=== PATIENT | female | born 1945 | race Caucasian/White ===

== ENCOUNTER 2023-04-28 17:46 | Emergency (ER) | payer MEDICARE, SELFPAY ==
[2023-04-28] VITALS (14 sets, daily range): BP systolic 106–145; BP diastolic 68–95; PULSE 62–98; RESP 14–34; TEMP 36.6; O2SAT 95–99; BMI 40.7
--- NOTE | 2023-04-28 17:52 | XR_ITS ---
The [place] [id number] Patient Name: NINFA BECKER MRN: [id number] date: 1945 Sex: F Assigned Patient Location: ER Current Patient Location: ED.MAIN Accession/Order Number: [id number] Exam Date: 04/28/2023 16:55 Report Date: 04/28/2023 19:16 At the request of: MARTINA BAINS Procedure: XR hip LT 2V w/ pelvis EXAM: XR hip LT 2V w/ pelvis HISTORY: Fall out of front door COMPARISON: None. TECHNIQUE: AP pelvis and 2 views of the left hip FINDINGS: No fracture, dislocation, subluxation or osseous lesion. The hip joints, pubic symphysis and sacroiliac joints are normal for patient's age. Enthesophytes off the tendinous insertions. Scattered atherosclerosis of the vascular structures. IMPRESSION: No acute osseous abnormality. Electronically authenticated by: ABEL LEONARD Date: 04/28/2023 19:16
--- NOTE | 2023-04-28 17:52 | CT_ITS ---
[address] [address] Patient Name: NINFA BECKER MRN: [id number] date: 1945 Sex: F Assigned Patient Location: ER Current Patient Location: ER Accession/Order Number: [id number] Exam Date: 04/28/2023 18:45 Report Date: 04/28/2023 19:45 At the request of: MARTINA BAINS Procedure: CT head/brain wo con EXAMINATION: CT head/brain wo con TECHNIQUE: Axial CT images were obtained through the brain. Sagittal and coronal reformatted images were also obtained. Dose reduction techniques were achieved by using automated exposure control and/or adjustment of mA and/or kV according to patient size and/or use of iterative reconstruction technique. HISTORY: head injury COMPARISON: None. FINDINGS: Intracranial Bleed: No evidence for acute intracranial bleed. Intracranial Mass: No evidence for mass lesion. No mass effect or midline shift. Extra-axial spaces: There is mild cerebral atrophy and proportional ventricular enlargement. White/Mariscal Matter: No acute cortical infarct. Tiny old lacunar infarcts of the basal ganglia bilaterally. Skull/Scalp: No evidence for skull fracture or lesion. Large scalp hematoma over the right frontal convexity Orbits and sinuses: The orbits appear unremarkable. The visualized paranasal sinuses are clear. IMPRESSION: No acute intracranial pathology. Electronically authenticated by: SALVATORE ROMERO Date: 04/28/2023 19:45
--- NOTE | 2023-04-28 17:54 | CT_ITS ---
The [address] [address] Patient Name: NINFA BECKER MRN: [id number] date: 1945 Sex: F Assigned Patient Location: ER Current Patient Location: ED.MAIN Accession/Order Number: [id number] Exam Date: 04/28/2023 18:45 Report Date: 04/28/2023 19:11 At the request of: MARTINA BAINS Procedure: CT cervical spine wo con EXAM: CT cervical spine wo con HISTORY: fall COMPARISON: None. TECHNIQUE: Axial CT imaging is performed through the cervical spine. Sagittal and coronal reformatted/reconstructed sequences were additionally performed. FINDINGS: Multilevel intervertebral disc space narrowing, endplate, uncovertebral and facet arthrosis. Straightening of the normal cervical lordosis with mild reversal centered at C4. No visualized fracture or listhesis. The dens and lateral masses of C1 are symmetric. No prevertebral soft tissue edema. The visualized osseous skull base and mastoid air cells are unremarkable. Atherosclerosis of the vascular structures. No gross irregularity of the visualized pulmonary apices, thoracic inlet or visualized airway IMPRESSION: No visualized acute abnormality. Electronically authenticated by: ABEL LEONARD Date: 04/28/2023 19:11
--- NOTE | 2023-04-28 17:56 | ED.FALL1 ---
Documented by User: Katelynn Nieves MD 04/28/23 19:46 HPI - Fall General Chief Complaint: Fall Stated Complaint: FALL Time Seen by Provider: 04/28/23 17:55 Source: patient Mode of arrival: ambulance Limitations: no limitations History of Present Illness HPI Narrative: Patient fell from standing position and she was tripped by her dog and landed on her head did not have loss of consciousness. She sustained a hematoma to the frontal area and was not able to get up due to pain to her left hip, knee, and ankle. She arrived via EMS. Patient denies any weakness. She has not been sick with anything recently. She denies any visual disturbance or speech difficulties. She complains of neck pain denies any chest pain, or shortness of breath. She denies any flank pain or abdominal pain nausea, vomiting, or diarrhea. She denies any hematuria or dysuria. She states she feels like she has to urinate. Related Data Allergies Allergy/AdvReac Type Severity Reaction Status Date / Time Penicillins Allergy Severe Verified 04/28/23 17:45 Review of Systems ROS Status of ROS 10 or more systems reviewed and unremarkable except as noted in history and below [facility] Social History Smoking status: Never smoker Exam Narrative Exam Narrative: Nurses notes and vital signs reviewed and patient is not hypoxic. General: Elderly, frail, chronically ill, nontoxic, and in no apparent distress. Skin: Warm, dry, no pallor noted. No rash. Head: Normocephalic, Large right frontal hematoma, no step-offs. Neck: Supple, non-tender.c collar in place. Eye: Pupils are equal, round and EOMI. No scleral icterus.No periorbital tenderness or step-offs. Ears, Nose, Mouth, and Throat: TM are clear, No hemotympanum,no posterior oropharynx erythema or nasal mucosal hypertrophy, uvula is mid-line Oral mucosa is moist Cardiovascular: Regular Rate and Rhythm without murmur, gallop or rub. Respiratory: No accessory muscle use or respiratory distress. Lungs are clear to auscultation, no wheezing, rales or rhonchi Chest Wall: no tenderness Back: No midline thoracic or lumbar vertebral tenderness. No CVA tenderness Musculoskeletal: Advised to palpation to the left lateral hip, knee left lateral knee, and bilateral ankle malleoli. DP +2, capillary refill is brisk.range of Motion is limited by pain. no calf or popliteal tenderness, no lower extremity edema/swelling GI: Abdomen is soft, non-distended. Normal bowel sounds. No masses appreciated. No tenderness to palpation. No rebound, guarding, or rigidity noted. Neurological: A&O x4. No cranial nerve dysfunction observed. Moves all extremities. Sensation intact. Psychiatric: Cooperative and interactive. Normal mood and affect. Constitutional Vital Signs - 24 hr 04/28/23 17:46 04/28/23 17:47 04/28/23 17:50 Temperature 97.8 F Pulse Rate 65 63 Pulse Rate [Monitor] 67 Respiratory Rate 24 17 32 H Blood Pressure Blood Pressure [Right Arm] 106/68 Pulse Oximetry 98 99 98 Oxygen Delivery Method Room Air 04/28/23 18:00 04/28/23 18:01 04/28/23 18:01 Temperature Pulse Rate 66 64 Pulse Rate [Monitor] Respiratory Rate 14 21 Blood Pressure 139/95 H 139/95 H Blood Pressure [Right Arm] Pulse Oximetry 96 95 Oxygen Delivery Method 04/28/23 19:09 04/28/23 19:10 04/28/23 19:20 Temperature Pulse Rate 62 63 68 Pulse Rate [Monitor] Respiratory Rate 14 19 18 Blood Pressure Blood Pressure [Right Arm] Pulse Oximetry 99 97 96 Oxygen Delivery Method 04/28/23 19:30 04/28/23 19:40 04/28/23 19:50 Temperature Pulse Rate 98 H 80 80 Pulse Rate [Monitor] Respiratory Rate 17 18 34 H Blood Pressure Blood Pressure [Right Arm] Pulse Oximetry 98 97 95 Oxygen Delivery Method 04/28/23 20:00 04/28/23 20:01 Temperature Pulse Rate 90 78 Pulse Rate [Monitor] Respiratory Rate 20 16 Blood Pressure 145/73 H Blood Pressure [Right Arm] Pulse Oximetry 98 98 Oxygen Delivery Method Course Course Hospital Course: Patient was seen and evaluated by me. CT scans and radiologic studies were ordered. The patient will be signed out to Dr. Berrios at the end of my shift awaiting radiologic studies, reevaluation, and disposition. Vital Signs Vital signs: Vital Signs Temperature 97.8 F 04/28/23 17:46 Pulse Rate 67 04/28/23 17:46 Respiratory Rate 24 04/28/23 17:46 Blood Pressure 106/68 04/28/23 17:46 Pulse Oximetry 98 04/28/23 17:46 Oxygen Delivery Method Room Air 04/28/23 17:46 Temperature 97.8 F 04/28/23 17:46 Pulse Rate 78 04/28/23 20:01 Respiratory Rate 16 04/28/23 20:01 Blood Pressure 145/73 H 04/28/23 20:01 Pulse Oximetry 98 04/28/23 20:01 Oxygen Delivery Method Room Air 04/28/23 17:46 MDM - Fall Differential Diagnosis Differential diagnosis: Likely other (Left hip fracture, left knee fracture, left ankle fracture, closed head injury) Lab Data Labs: Lab Results 04/28/23 Range/Units 18:28 Urine Color Lt. yellow (YELLOW) Urine Clarity Clear (CLEAR) Urine pH 5.5 (5.0-9.0) Ur Specific [place] 1.010 (1.005-1.025) Urine Protein Negative (NEG/TRACE) mg/dL Urine Glucose (UA) 100 A (NEGATIVE) mg/dL Urine Ketones Negative (NEGATIVE) mg/dL Urine Occult Blood Negative (NEGATIVE) Urine Nitrite Negative (NEGATIVE) Urine Bilirubin Negative (NEGATIVE) Urine Urobilinogen 0.2 (0.2-1.0) EU/dL Ur Leukocyte Esterase Negative (NEGATIVE) Discharge Plan Discharge Chief Complaint: Fall Clinical Impression: Head injury due to trauma, Cervical strain, acute, Fracture of ankle, left, closed Condition: Good Instructions: Cervical Strain (ED), Ankle Fracture (ED), Head Injury (ED), Contusion in Adults (ED) Referrals: Suma Gomez [Primary Care Provider] - 1 week Documented by User: Pieter Berrios MD 04/28/23 21:19 HPI - Fall General Chief Complaint: Fall Stated Complaint: FALL Time Seen by Provider: 04/28/23 17:55 Related Data Allergies Allergy/AdvReac Type Severity Reaction Status Date / Time Penicillins Allergy Severe Verified 04/28/23 17:45 PFSH PFSH Social History Smoking status: Never smoker Exam Constitutional Vital Signs - 24 hr 04/28/23 17:46 04/28/23 17:47 04/28/23 17:50 Temperature 97.8 F Pulse Rate 65 63 Pulse Rate [Monitor] 67 Respiratory Rate 24 17 32 H Blood Pressure Blood Pressure [Right Arm] 106/68 Pulse Oximetry 98 99 98 Oxygen Delivery Method Room Air 04/28/23 18:00 04/28/23 18:01 04/28/23 18:01 Temperature Pulse Rate 66 64 Pulse Rate [Monitor] Respiratory Rate 14 21 Blood Pressure 139/95 H 139/95 H Blood Pressure [Right Arm] Pulse Oximetry 96 95 Oxygen Delivery Method 04/28/23 19:09 04/28/23 19:10 04/28/23 19:20 Temperature Pulse Rate 62 63 68 Pulse Rate [Monitor] Respiratory Rate 14 19 18 Blood Pressure Blood Pressure [Right Arm] Pulse Oximetry 99 97 96 Oxygen Delivery Method 04/28/23 19:30 04/28/23 19:40 04/28/23 19:50 Temperature Pulse Rate 98 H 80 80 Pulse Rate [Monitor] Respiratory Rate 17 18 34 H Blood Pressure Blood Pressure [Right Arm] Pulse Oximetry 98 97 95 Oxygen Delivery Method 04/28/23 20:00 04/28/23 20:01 Temperature Pulse Rate 90 78 Pulse Rate [Monitor] Respiratory Rate 20 16 Blood Pressure 145/73 H Blood Pressure [Right Arm] Pulse Oximetry 98 98 Oxygen Delivery Method Course Course Hospital Course: Patient was seen and evaluated by me. CT scans and radiologic studies were ordered. The patient will be signed out to Dr. Berrios at the end of my shift awaiting radiologic studies, reevaluation, and disposition. Vital Signs Vital signs: Vital Signs Temperature 97.8 F 04/28/23 17:46 Pulse Rate 67 04/28/23 17:46 Respiratory Rate 24 04/28/23 17:46 Blood Pressure 106/68 04/28/23 17:46 Pulse Oximetry 98 04/28/23 17:46 Oxygen Delivery Method Room Air 04/28/23 17:46 Temperature 97.8 F 04/28/23 17:46 Pulse Rate 78 04/28/23 20:01 Respiratory Rate 16 04/28/23 20:01 Blood Pressure 145/73 H 04/28/23 20:01 Pulse Oximetry 98 04/28/23 20:01 Oxygen Delivery Method Room Air 04/28/23 17:46 MDM - Fall MDM Narrative Medical decision making narrative: care transferred at change of shift. Patient fell down stairs of her front porch. was tripped by her dog. Struck her forehead but no LOC. CT and xrays pending . CT brain and C-spine without acute findings. xray left knee neg for acute findings. Xray of the left ankle demonstrated fracture of the medial malleolus, tibia plafond and questionable fracture of the distal fibula. patient and family informed of the results. Patient's left ankle splinted with extra padding. She is discharged home to follow up with orthopedics. Her family is here to support her at home. Medical Records Medical records narrative: procedure: placement of left ankle splint. Re: left ankle fracture. Size 5 fiber glass material used to form posterior ankle splint. extra padding used for the procedure. Patient tolerated the procedure well. N/V post procedure WNL Lab Data Labs: Lab Results 04/28/23 Range/Units 18:28 Urine Color Lt. yellow (YELLOW) Urine Clarity Clear (CLEAR) Urine pH 5.5 (5.0-9.0) Ur Specific [place] 1.010 (1.005-1.025) Urine Protein Negative (NEG/TRACE) mg/dL Urine Glucose (UA) 100 A (NEGATIVE) mg/dL Urine Ketones Negative (NEGATIVE) mg/dL Urine Occult Blood Negative (NEGATIVE) Urine Nitrite Negative (NEGATIVE) Urine Bilirubin Negative (NEGATIVE) Urine Urobilinogen 0.2 (0.2-1.0) EU/dL Ur Leukocyte Esterase Negative (NEGATIVE) Discharge Plan Discharge Chief Complaint: Fall Clinical Impression: Head injury due to trauma, Cervical strain, acute, Fracture of ankle, left, closed Condition: Good Instructions: Cervical Strain (ED), Ankle Fracture (ED), Head Injury (ED), Contusion in Adults (ED) Referrals: Suma Gomez [Primary Care Provider] - 1 week
--- NOTE | 2023-04-28 18:47 | XR_ITS ---
The [address] [address] Patient Name: NINFA BECKER MRN: [id number] date: 1945 Sex: F Assigned Patient Location: ER Current Patient Location: ER Accession/Order Number: [id number] Exam Date: 04/28/2023 16:55 Report Date: 04/28/2023 19:22 At the request of: MARTINA BAINS Procedure: XR ankle LT min 3V EXAM: XR ankle LT min 3V HISTORY: Pain following fall COMPARISON: None. TECHNIQUE: 3 views FINDINGS: IMPRESSION: Comminuted displaced intra-articular fracture of the medial malleolus and posteromedial tibial plafond. Questionable nondisplaced horizontal fracture of the distal fibula. Large talocrural joint effusion. Diffuse subcutaneous soft tissue edema. Degenerative joint space narrowing and osteophytes of all visualized joints. 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 Atherosclerosis of the vascular structures. Electronically authenticated by: ABEL LEONARD Date: 04/28/2023 19:22
--- NOTE | 2023-04-28 18:56 | XR_ITS ---
The [address] [address] Patient Name: NINFA BECKER MRN: [id number] date: 1945 Sex: F Assigned Patient Location: ER Current Patient Location: ER Accession/Order Number: [id number] Exam Date: 04/28/2023 16:55 Report Date: 04/28/2023 19:19 At the request of: MARTINA BAINS Procedure: XR knee LT 3V EXAM: XR knee LT 3V HISTORY: Left knee pain after fall COMPARISON: None. TECHNIQUE: 3 views FINDINGS: IMPRESSION: Tricompartmental joint space narrowing and osteophytes. No visualized fracture, dislocation, subluxation or osseous lesion. No discrete knee effusion. Atherosclerosis of the vascular structures. Electronically authenticated by: ABEL LEONARD Date: 04/28/2023 19:19
--- NOTE | 2023-04-28 19:47 | ECG_ITS ---
The [facility] Test Date: 2023-04-28 Pat Name: Deena Cox Department: Room: - Gender: Female Residential Aide: : 1945 Requested By: FRANKLIN HAMPTON Order Number: [id number] Reading MD: MAHESH VALVERDE Measurements Intervals [place] Rate: 61 P: -[id number] [place]: -[id number] QRS: -8 QRSD: 70 T: 0 QT: 404 QTc: 408 Interpretive Statements MOBITZ I AV BLOCK ([place]) 3633 Inferior myocardial infarction, probably old 5233 Voltage criteria for LVH 8102 Low QRS voltage in chest leads 9150 abnormal ECG No previous ECG available for comparison Electronically Signed On 04-29-2023 6:41:00 EDT by MAHESH VALVERDE
[2023-04-28 20:39] LABS: Bilirubin Urine NEGATIVE (NEGATIVE); Blood Urine NEGATIVE (NEGATIVE); Clarity Urine CLEAR (CLEAR); Color Urine LT. YELLOW (YELLOW); Glucose Urine UA 100 mg/dL (NEGATIVE); Ketones Urine NEGATIVE (NEGATIVE); Leukocyte Esterase Urine NEGATIVE (NEGATIVE); Nitrite Urine NEGATIVE (NEGATIVE); Protein Urine NEGATIVE (NEG/TRACE); Urine Microscopic Indicated NO; Urobilinogen Urine 0.2 EU/dL (0.2-1.0); pH Urine 5.5 (5.0-9.0)
--- NOTE | 2023-04-28 20:52 | PC.NURSE ---
nurse into assist with left ankle split.
[2023-04-28] MEDS: HYDROCODONE/ACETAMINOPHEN 5-325 MG TABLET 4 TAB PO (21:32)
== END 2023-04-28 22:17 | disposition home or self-care (01) ==
PROVIDERS: Emergency Provider Internal Medicine; PCP Nurse Practitioner
DX: S82.52XA Displaced fracture of medial malleolus of left tibia, initial encounter for closed fracture (principal); S82.292A Other fracture of shaft of left tibia, initial encounter for closed fracture; S16.1XXA Strain of muscle, fascia and tendon at neck level, initial encounter; S09.90XA Unspecified injury of head, initial encounter; W10.9XXA Fall (on) (from) unspecified stairs and steps, initial encounter
CPT/HCPCS: 29515; 70450; 72125; 73502; 73562; 73610; 81003; 93005; 99285

== ENCOUNTER 2023-05-01 22:50 | Emergency (ER) | payer MEDICARE, SELFPAY ==
[2023-05-01 22:51] VITALS: BP 118/69; PULSE 79; RESP 18; TEMP 36.4; O2SAT 97; BMI 39.8
--- NOTE | 2023-05-01 23:26 | ED_ITS ---
HPI - General Adult General Chief complaint: Extremity Injury, Lower Stated complaint: LEFT ANKLE PAIN Time Seen by Provider: 05/01/23 22:58 Source: patient Mode of arrival: ambulance History of Present Illness HPI narrative: Patient is a 78-year-old female who is presenting to the Emergency Room with chief complaint Of left ankle pain. Patient has a left posterior splint in place. Patient has no signs or symptoms of compartment syndrome. Patient states that the left ankle still hurts, she just had a fracture 3 days ago from a fall. Patient has CT of the head, neck and x-rays of the left hip, knee and ankle. Patient has a orthopedic surgeon appointment tomorrow with a [facility] orthopedic group [facility]. Patient was a home with her niece is helping care for her. Patient does have a wheelchair at home that she is not u sing. Patient is using pain medication at home. Patient's had no problems drinking or urinating. Patient's had mild headache. Patient has significant ecchymosis to her face and forehead from the fall 3 days ago. Patient has no severe headache or pain out of proportion compared to 3 days ago. No new neck pain. No chest pain or shortness of breath. No nausea or vomiting. Patient's having intermittent headaches, considering that her left ankle still hurts. A lot of education was done at bedside on fracture care, falling up with orthopedic surgery, and educating her that she will have pain for the next month. Patient has no signs signs of compartment syndrome, no other acute complaints. Patient came by EMS. Related Data Allergies Allergy/AdvReac Type Severity Reaction Status Date / Time Penicillins Allergy Severe Verified 05/01/23 22:55 Review of Systems ROS Narrative All systems are negative except as noted/marked. All systems reviewed and otherwise negative. [facility] Social History Smoking status: Never smoker Exam Narrative Exam Narrative: Nurses note and vital signs reviewed and patient is not hypoxic. General: The patient appears well and in no apparent distress. Patient is re sting comfortably on cart. Patient is not toxic, lethargic, or listless Skin: Warm, dry, no pallor noted. There is no rash noted. No petechiae, purpura. Head: Normocephalic, Patient has a hematoma to the mid forehead, 3 x 2 cm, Lately firm, Raccoon eyes noted, no johnson signs, no Hemotympanum bilateral,Patient has no midline or paracervical tenderness to palpation. Eye: Normal conjunctiva, no drainage, EOMI. PERRL, Pupils are 4/2, equal, bilateral. Ears, Nose, Mouth, and Throat: oral mucosa is Dry, patient is drinking vitamin water. Nares patent. Mouth without vesicles. Cardiovascular: Regular Rate and Rhythm, no murmur, gallop, rub Respiratory: Patient is in no distress, no accessory muscle use, lungs are clear to auscultation, no wheezing, rales or rhonchi Back: non-tender, No new signs of trauma, or ecchymosis to her back. no CVA tenderness bilaterally to percussion. No CT LS midline pain GI: soft, obese, no tenderness to palpation, no masses appreciated. No rebound, guarding, or rigidity noted. No flank pain bilateral, No distention Musculoskeletal: Patient has full range of motion of all of the extremities Except to left lower extremity. Patient has a left short posterior splint to the left lower leg. Patient has no signs or symptoms of compartment syndrome. Patient has movement of all of her toes the left foot, normal cap refill, left short posterior splint is intact. no motor, sensory, or focal neurological deficits Neurological: A&O x3, normal speech Psychiatric: Cooperative Constitutional Vital Signs - 24 hr 05/01/23 22:51 Temperature 97.6 F Pulse Rate [Monitor] 79 Respiratory Rate 18 Blood Pressure [Left Arm] 118/69 Pulse Oximetry 97 Oxygen Delivery Method Room Air Course Vital Signs Vital signs: Vital Signs Temperature 97.6 F 05/01/23 22:51 Pulse Rate 79 05/01/23 22:51 Respiratory Rate 18 05/01/23 22:51 Blood Pressure 118/69 05/01/23 22:51 Pulse Oximetry 97 05/01/23 22:51 Oxygen Delivery Method Room Air 05/01/23 22:51 Temperature 97.6 F 05/01/23 22:51 Pulse Rate 79 05/01/23 22:51 Respiratory Rate 18 05/01/23 22:51 Blood Pressure 118/69 05/01/23 22:51 Pulse Oximetry 97 05/01/23 22:51 Oxygen Delivery Method Room Air 05/01/23 22:51 Medical Decision Making MDM Narrative Medical decision making narrative: Multiple phone calls were had with niclarible Barnes who is helping take care of the patient. Over 20 minutes has been spent multiple times with patient educating patient on how to care for herself at home, seeing orthopedic surgeon tomorrow, and uncertain the patient is going to require surgery or a cast. Patient may need to be hospitalized, she may need rehab. Patient took 1.5 [place] one hour prior to arrival. Pattient has no acute changes to the left lower leg compared to 3 days ago. This has a compartment syndrome. Patient's left lower short leg posterior splint is intact. No signs of secondary infection. He has spoken to Molly several times be seen myself and Pancho MADERA the patient is a follow-up with her orthopedic surgeon tomorrow, and additional care can be recommended by orthopedic surgery. The patient needs placed in a nursing facility rehab, patient's PCP can help assist with this as well. No indication for admission at this time. Patient is not given a pain pill because she just had 1.5 [place] tablets one hour prior to arrival per her niece Molly. Patient was hoping we could put a cast on her leg today, patient was educated why were not doing that until she sees orthopedics tomorrow. After speaking the patient and her niece Molly, patient does have a wheelchair she can use at home. The niece Molly and family have a truck that can help pick her up for appt and take her to the orthopedic surgery office tomorrow. Patient is aware this. Patient didn't attempt 3, GCS of 15. No questions at discharge. Patient's regular vitamin water well with difficulty Discharge Plan Discharge Chief Complaint: Extremity Injury, Lower Clinical Impression: Fracture of ankle, left, closed, CHI (closed head injury), Post concussion syndrome, Contusion of face Patient Disposition: Home, Self-Care Time of Disposition Decision: 23:11 Condition: Fair Instructions: Ankle Fracture (ED), Post Concussion Syndrome (ED), P.R.I.C.E. Treatment (ED) Additional Instructions: Continue to ice, 20 minutes on, 20 minutes off. Use pain medication as needed. Use stool softeners as well so the narcotic pain medication does not cause secondary constipation. Use your wheelchair at home. Continue to follow-up and see your orthopedic surgeon tomorrow. Stand Alone Forms: Portal Instructions Referrals: Suma Gomez [Primary Care Provider] - 1 week
== END 2023-05-02 00:47 | disposition home or self-care (01) ==
PROVIDERS: Emergency Provider Emergency Medicine; PCP Nurse Practitioner
DX: S82.892A Other fracture of left lower leg, initial encounter for closed fracture (principal); W19.XXXA Unspecified fall, initial encounter; S09.8XXA Other specified injuries of head, initial encounter; F07.81 Postconcussional syndrome; S00.83XA Contusion of other part of head, initial encounter
CPT/HCPCS: 99281